=== PATIENT | female | born 1975 | race Caucasian/White ===

== ENCOUNTER → 2017-10-16 | Outpatient (CLI) | payer BC ==
[~2017-10-16] MED LIST: IBU800 PO; IRON18TA2 PO; LOR5 PO; PER PO; PREN-67 PO
--- NOTE | 2017-10-17 14:35 | RADIOLOGY IMAGING REPORT ---
FACILITY: [facility] PATIENT NAME: SANTIAGO YOUNG : [id number] MR: [id number] V: [id number] EXAM DATE: [id number] ORDERING PHYSICIAN: QUINTON FLORENTINO TECHNOLOGIST: Ca Connor PROCEDURE:BILATERAL DIGITAL SCREENING MAMMOGRAM WITH CAD ASSISTED INTERPRETATION & 3D TOMOSYNTHESIS COMPARISON:None. INDICATIONS:SCREENING FINDINGS: A small amount of fibroglandular tissue is seen throughout the breasts. There is a well circumscribed nodular density in the medial inferior portion of the Left breast for which Left breast Ultrasound is recommended. There is an additional area of increased density in the upper portion of Left breast Zone 3 for which sport compression view is recommended. DIAGNOSTIC CATEGORY 0--INCOMPLETE: NEED ADDITIONAL IMAGING EVALUATION. RECOMMENDATIONS: ADDITIONAL MAMMOGRAPHIC VIEWS REQUIRED: LEFT BREAST. ULTRASOUND: RIGHT BREAST. IMPRESSION: BIRADS 0: Incomplete Right breast Ultrasound and additional views of Left breast recommended as described. Dictated by: Olivia Teran M.D. on 10/16/2017 at 16:52 Transcribed by: RUDY on 10/17/2017 at 8:06 Approved by: Olivia Teran M.D. on 10/17/2017 at 14:33 [facility]
== END ==
LOC: MAMO 07:15
PROVIDERS: ATTEND Student in an Organized Health Care Education/Training Program
DX: Z12.31 Encounter for screening mammogram for malignant neoplasm of breast (principal); R92.8 Other abnormal and inconclusive findings on diagnostic imaging of breast
CPT/HCPCS: 77063; 77067

== ENCOUNTER → 2017-11-27 | Outpatient (CLI) | payer BC ==
--- NOTE | 2017-11-28 11:52 | RADIOLOGY IMAGING REPORT ---
FACILITY: [facility] PATIENT NAME: SANTIAGO YOUNG : [id number] MR: [id number] V: [id number] EXAM DATE: ORDERING PHYSICIAN: QUINTON FLORENTINO TECHNOLOGIST: Ca Connor PROCEDURE:LEFT DIGITAL DIAGNOSTIC MAMMOGRAM WITH CAD ASSISTED INTERPRETATION & 3D TOMOSYNTHESIS COMPARISON:Prior mammograms 10/16/17. INDICATIONS:further evaluation FINDINGS: The patient returns for Spot compression view in the Left MLO projection. The ovoid area of increased density in the upper portion Left breast on Left MLO view is again faintly seen. No sonographic correlate could be identified. This could simply represent a small island of fibroglandular tissue however a 6 month follow-up Left mammogram is recommended unless clinical findings warrant more immediate attention. DIAGNOSTIC CATEGORY 3--PROBABLY BENIGN FINDING. RECOMMENDATIONS: SIX MONTH FOLLOW-UP DIAGNOSTIC MAMMOGRAM: LEFT BREAST. SIX MONTH FOLLOW-UP ULTRASOUND: RIGHT BREAST. IMPRESSION: BIRADS 3: Probably benign finding A 6 month follow-up Left mammogram recommended as described above. A 6 month follow-up Right breast Ultrasound is also recommended as described in Today's bilateral breast Ultrasound report. Dictated by: Olivia Teran M.D. on 11/27/2017 at 16:52 Transcribed by: RUDY on 11/28/2017 at 8:53 Approved by: Olivia Teran M.D. on 11/28/2017 at 11:51 [facility]
--- NOTE | 2017-11-28 11:53 | RADIOLOGY IMAGING REPORT ---
FACILITY: [facility] PATIENT NAME: SANTIAGO YOUNG : [id number] MR: [id number] V: [id number] EXAM DATE: [id number] ORDERING PHYSICIAN: QUINTON FLORENTINO TECHNOLOGIST: Andrew Broderick PROCEDURE:US BILATERAL BREAST COMPARISON:None. INDICATIONS:FURTHER EVAL FINDINGS: In the medial inferior portion Right breast in the 5 o'clock position 8cm from the nipple there is a small well circumscribed ovoid hypoechoic nodule measuring 6.6 x 3.3 x 4.6mm with some internal echoes. This nodule is wider than tall with no acoustic shadowing. This may represent a small debris filled cyst or possibly fibroadenoma or other solid lesion not total excluded. There is an additional 7.5 x 4.1mm ovoid anechoic structure in the 5 o'clock position Right breast 6-12cm from the nipple could represent a small cyst or mildly dilated duct. No abnormality of the Left breast identified sonographically. DIAGNOSTIC CATEGORY 3--PROBABLY BENIGN FINDING. RECOMMENDATIONS: SIX MONTH FOLLOW-UP DIAGNOSTIC MAMMOGRAM: LEFT BREAST. SIX MONTH FOLLOW-UP ULTRASOUND: RIGHT BREAST. IMPRESSION: BIRADS 3: Probably benign finding No sonographic abnormality identified in the Left breast to account for the lobular area of increased density in the upper outer quadrant. Also the small well circumscribed ovoid nodule in the 5 o'clock position of the Right breast which may represent a debris filled cyst, fibroadenoma or other solid lesion in small cystic area also in the 5 o'clock position of the Right breast are noted. A 6 month follow-up Left mammogram and Right breast Ultrasound recommended unless clinical findings warrant more immediate attention. Dictated by: Olivia Teran M.D. on 11/27/2017 at 16:51 Transcribed by: RUDY on 11/28/2017 at 9:10 Approved by: Olivia Teran M.D. on 11/28/2017 at 11:51 [facility]
== END ==
LOC: MAMO 11-26 03:21
PROVIDERS: ATTEND Student in an Organized Health Care Education/Training Program
DX: R92.1 Mammographic calcification found on diagnostic imaging of breast (principal); N63.14 Unspecified lump in the right breast, lower inner quadrant
CPT/HCPCS: 76641; 77065